=== PATIENT | male | born 1970 ===

== ENCOUNTER 2024-08-29 12:38 | Outpatient (REF) | payer OTHER, SELFPAY ==
--- OUTSIDE RECORDS SUMMARY | 2024-08-29 12:41 | XMS_ITS | Data Portability ---
Author Organization [place] - [facility], Allergy Address [address] [place] [address] Care Team Providers Care Tactical Air Defense Controller Name Role Phone YVETTE ROUSSEAU Primary Care Provider Assessment Encounter Date Assessment Date Assessment LastModified by Organization Details LastModified Time 08/21/2024 08/21/2024 Both ears appear stable today. Large amount of excess cerumen was removed from left ear canal. Small perforation on the left is unchanged in comparison to previous photographs. Once again we discussed in light of his surgical history I would recommend amplification rather than attempt at revision surgery. [email or web address] Not available 08/21/2024 14:06:55 Plan of Treatment Reminders Order Date Submit Date Provider Last Modified By Organization Details Last Modified Time Details Appointments Establish ed 10 2024 01:30P M BERNARD LAGOS MD Not available Not available Not available Lab None recorded. Referral None recorded. Procedures None recorded. Surgeries None recorded. Imaging None recorded. Medication Orders None recorded. Patient TargetsNo targets recorded. Patient InstructionsNo instructions recorded. Reason for Referral None Reported. Results Created Date Observation Date Name Description Value Unit Range Abnormal Flag Note LastModifiedBy Organization Detail LastModifiedTime 08/22/20 24 audio gram No observ ation record ed. BARCODE Not Available 2023 09:47:11 Result Notes None recorded. 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; Note: Date Diagnose d: 2 10:15 AM (H74.11) Not Available [facility] 4 03:07:30 Acute myringit is of left ear 14610089693 04715 Completed 202104/13/2024 Acute myringit is, left ear; Note: Date Diagnose d: 2 10:15 AM (H73.002 ) Not Available [facility] 4 03:07:30 Impacted cerumen in left ear 11713479532 25540 Active 2021 Impacted cerumen, left ear; Note: Date Diagnose d: 2 10:16 AM (H61.22) Not Available [facility] 4 03:07:32 Mixed conducti ve and sensorin eural hearing loss, bilatera l 351461002 Active 2021 Mixed conducti ve and sensorin eural hearing loss, bilatera l; Note: Date Diagnose d: 2 10:28 AM (H90.6) Not Available [facility] 4 03:07:31 Bilatera l disorder of Eustachi an tubes 35008071957 24423 Active 2021 Other specifie d disorder s of Eustachi an tube, bilatera l; Note: Date Diagnose d: 2 10:15 AM (H69.83) Not Available [facility] 4 03:07:30 Marginal perforat ion of tympanic membrane 58403738 Active 2021 Other marginal perforat ions of tympanic membrane , left ear; Note: Date Diagnose d: 2 10:15 AM (H72.2X2 ) Not Available [facility] 4 03:07:31 Bilatera l tinnitus 32415505574 02 Active 2023 BERNARD LAGOS MD [address] [place] [address],[place] [address], [place], [address] , [facility] - [facility] 4 14:07:15 Problem Notes None recorded. Procedures Surgical History Date Name Laterality Status Provider Name and Address Organization Details Recorded Time 4 Cerumen removal with microscope left completed BERNARD LAGOS MD [address] [place] [address],[place] [address], [place], [address], [place] - [facility] 08/21/2024 14:04:10 Air & Speech Audio with Tymps ([id number], 49387 & 50212) completed Josephine Garay [place] - [facility] 08/21/2024 14:30:51 Imaging Results Imaging Date Name Status LastModified by Organiz ation Details LastModified Time 08/22/2024 audiogram completed BARCODE Information no t available 08/22/2024 09:47:11 Procedure Notes None recorded. Medical Equipment None Reported. Allergies No known drug allergies Medications Name Sig Start Date Stop Date Status Note LastModified by Organization Details LastModified Time metformin 500 mg tablet TAKE 2 TABLETS BY MOUTH TWICE A DAY WITH MEALS active Not Available Not Available No t Available sulfameth oxazole 800 mg-trimet hoprim 160 mg tablet TAKE 1 TABLET BY MOUTH TWICE A DAY FOR 5 DAYS 08/21 completed Not Available Not Available Not Available lisinopri l 10 mg tablet TAKE 1 TABLET BY MOUTH EVERY DAY active Not Available Not Available No t Available triamcino lone acetonide 0.1 % lotion APPLY TO SCALP DAILY NEEDED 08/21 completed Not Available Not Available Not Available TobraDex 0.3 %-0.1 % eye drops,nivia pension 08/17 completed Medicati on ID: [id number] P rescribe d By Name: Sarah Morales nd Name: TobraDex Send Method: E-Prescr ibed Sub s Allowed: subs OK Speci al Instruct ion: Instill 3 drops in the affect ear BID for 10 days Med icationG enericNa me: TobraDex Not Available Not Available Not Available ciproflox acin 0.3 %-dexamet hasone 0.1 % ear drops,nivia pension 4 drop into left ear 08/21 completed Medicati on ID: [id number] D uration Value: 7 Prescri bed By Name: Sarah Morales nd Name: ciproflo xacin-de xamethas one Send Method: E-Prescr ibed Sub s Allowed: subs OK Speci al Instruct ion: x 7 days Med icationG enericNa me: ciproflo xacin-de xamethas one Not Available Not Available Not Available rosuvasta tin 5 mg tablet TAKE 1 TABLET BY MOUTH EVERY DAY active Not Available Not Available No t Available Jardiance 10 mg tablet TAKE 1 TABLET BY MOUTH EVERY DAY active Not Available Not Available No t Available Vitals Date Recorded Body height Body weight Provider Name and Address Organization Details Last Updated DateTime 08/21/2024 177.8 cm 93978.77 g Allie Burnett [place] - [facility] 08/21/2024 13:52:06 Social History None recorded. Functional Status None recorded. Mental Status None recorded. Family History Nothing Reported. Medical History Condition Response Diabetes Y Migraines Y Hypertension Y Anxiety Y Depression Y High Cholesterol Y Past Encounters Encounter ID Performer Location Encounter Start Date Encounter Closed Date Diagnosis/Indication Diagnosis SNOMED-CT Code Diagnosis ICD10 Code [id number] BERNARD LAGOS MD [facility] [address] [address] 08/21/2024 13:35:08 08/21/2024 15:02:24 Adhesive middle ear disease 9082563 H74.11 Bilateral disorder of Eustachian tubes 2108226519 114001 H69.83 Marginal p erforation of tympanic membrane 52959599 H72.2X2 Mixed cond uctive and sensorineural hearing loss, bilateral 443475486 H90.6 Impacted c erumen in left ear 3756734242 685617 H61.22 Bilateral tinnitus 16476 91670 102 H93.13 Health Concerns Section Related Observation LastModified by Organization Detai ls LastModified Time None Recorded Concern Status LastModified by Organization Details LastModified Time None Recorded Advance Directives Directive None Recorded Payers Encounter Date Sequence Insurance Name Policy Number Policy Wolfe Covered Member ID Wolfe Member ID Guarantor Name 08/21/2024 1 [facility] - [facility] (MEDICAID REPLACEMENT - HMO) [employer] Fritz A Race [id number] Fritz A Race Notes Date Note Type Note Provider Name and Address Organization Details Recorded Time 08/21/2024 text/html Patient with his tory of left-sided tympanoplasty with ossiculoplasty in 2010. He had a right sided tympanoplasty with ossiculoplasty in 2012. Patient developed new left-sided perforation which was stable as of his last visit in August 2023. He has bilateral mixed hearing loss for which I have recommended binaural amplification. He reports awful tinnitus in the right ear. Noting some cerumen in the left ear, but no painful discharge. He is getting tired of his hearing loss noting difficulty hearing in a number of different listening situations, particularly with his television. BERNARD LAGOS MD [address] [place] [address], [address], [facility] - [facility] 08/21/2024 15:02:09
--- OUTSIDE RECORDS SUMMARY | 2024-08-29 12:41 | XMS_ITS | Continuity of Care Document ---
Author Organization [place] - [facility], [facility] Address [address] [place] [address] Care Team Providers Care Speeder Frame Tender Name Role Phone YVETTE ROUSSEAU Primary Care Provider [phone] Assessment Encounter Date Assessment Date Assessment LastModified by Organization Details LastModified Time 08/21/2024 08/21/2024 Both ears appear stable today. Large amount of excess cerumen was removed from left ear canal. Small perforation on the left is unchanged in comparison to previous photographs. Once again we discussed in light of his surgical history I would recommend amplification rather than attempt at revision surgery. [email or web address] Not available 08/21/2024 14:06:55 Plan of Treatment [...] Details Recorded Time Adhesive middle ear disease 3276234 Active 2021 Adhesive right middle ear disease; Note: Date Diagnose d: 2 10:15 AM (H74.11) Not Available [facility] 4 03:07:30 Acute myringit is of left ear 51705632742 68134 Completed 202104/13/2024 Acute myringit is, left ear; Note: Date Diagnose d: 2 10:15 AM (H73.002 ) Not Available [facility] 4 03:07:30 Impacted cerumen in left ear 73573675488 18004 Active 2021 Impacted cerumen, left ear; Note: Date Diagnose d: 2 10:16 AM (H61.22) Not Available [facility] 4 03:07:32 Mixed conducti ve and sensorin eural hearing loss, bilatera l 616608835 Active 2021 Mixed conducti ve and sensorin eural hearing loss, bilatera l; Note: Date Diagnose d: 2 10:28 AM (H90.6) Not Available [facility] 4 03:07:31 Bilatera l disorder of Eustachi an tubes 54664876970 44466 Active 2021 Other specifie d disorder s of Eustachi an tube, bilatera l; Note: Date Diagnose d: 2 10:15 AM (H69.83) Not Available [facility] 4 03:07:30 Marginal perforat ion of tympanic membrane 12270831 Active 2021 Other marginal perforat ions of tympanic membrane , left ear; Note: Date Diagnose d: 2 10:15 AM (H72.2X2 ) Not Available [facility] 4 03:07:31 Bilatera l tinnitus 19162381418 02 Active 2023 BERNARD LAGOS MD [address] [place] [address],[place] [address], [place], [address] , [facility] - [facility] 4 14:07:15 Problem Notes None recorded. Procedures Surgical History Date Name Laterality Status Provider Name and Address Organization Details Recorded Time 4 Cerumen removal with microscope left completed BERNARD LAGOS MD [address] [place] [address],[place] [address], [place], [address], [place] - [facility] 08/21/2024 14:04:10 Air & Speech Audio with Tymps (636[address], [address] & 37[address]) completed Josephine Garay [place] - [facility] 08/21/2024 14:30:51 Imaging Results None recorded. Procedure Notes None recorded. Medical Equipment None [...] drops,nivia pension 08/17 completed Medicati on ID: [id number] P rescribe d By Name: Sarah Morales [...] left ear 08/21 completed Medicati on ID: [id number] D uration Value: 7 Prescri bed By [...] Details Last Updated DateTime 08/21/2024 177.8 cm 15820.77 g Allie Burnett [place] - [facility] 08/21/2024 13:52:06 Social History None recorded. Functional Status None recorded. Mental Status None recorded. Family History Nothing Reported. Medical History Condition Response Diabetes Y Migraines Y Hypertension Y Anxiety Y Depression Y High Cholesterol Y Past Encounters Encounter ID Performer Location Encounter Start Date Encounter Closed Date Diagnosis/Indication Diagnosis SNOMED-CT Code Diagnosis ICD10 Code [id number] BERNARD LAGOS MD [facility] [address] [address] 08/21/2024 13:35:08 08/21/2024 15:02:24 Adhesive middle ear disease 9538351 H74.11 Bilateral disorder of Eustachian tubes 2124360738 489615 H69.83 Marginal p erforation of tympanic membrane 74266890 H72.2X2 Mixed cond uctive and sensorineural hearing loss, bilateral 642394261 H90.6 Impacted c erumen in left ear 6758906293 550210 H61.22 Bilateral tinnitus 08175 90175 102 H93.13 Health Concerns Section Related Observation LastModified by Organization Detai ls LastModified Time None Recorded Concern Status LastModified by Organization Details LastModified Time None Recorded Payers Encounter Date Sequence Insurance Name Policy Number Policy Wolfe Covered Member ID Wolfe Member ID Guarantor Name 08/21/2024 1 [facility] (MEDICAID REPLACEMENT - HMO) [facility] Fritz A Race [id number] Fritz A Race Notes Date Note Type [...] particularly with his television. BERNARD LAGOS MD [address] [place] [address], [place], [address], [facility] - [facility] 08/21/2024 15:02:09
--- NOTE | 2024-08-29 14:17 | MHC.AU.HA1 ---
Hearing Aid Evaluation Date of Visit: 08/29/24 Historical Information: Description of Hearing: Right Ear: Mild sloping to severe mixed hearing loss; Left Ear: Moderately-severe rising to mild sloping to moderate mixed hearing loss Summary: Provided hearing test and medical clearance from [facility]. Hearing issues started as baby. Hx of ear infections, multiple ear surgeries, PE tubes. Multiple surgeries for ossicular and tympanic membrane reconstruction. Most recently in 2016. 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 At most recent ENT appointment, Fritz and Dr. Rothman decided not to do reconstruction surgery again and he was given medical clearance for HAs. Reportedly tried HAs in his 30s at [facility]. Never fully acclimated, was still active in noisy environments (e.g., bars, concerts), never wore consistently, seemed to turn off whenever loud noise occurred. Now noticing increasing hearing difficulties, particularly while watching television. Wants to try HAs again but use them only for television. Discussed and explain importance of daily, consistent use and acclimatization period. Previous HAs reportedly custom ITCs. Initially wanted IIC/CIC customs due to vanity concerns; however, left ear reportedly has significant wax build up and drainage, which previously clogged custom HAs. After discussing pros/cons including rechargeability and bluetooth, Fritz opted to trial rechargeable RITEs starting with dome. Discussed possibility of adding EM in future, if needed, given hearing loss, but will start with dome to keep ears as open as possible due to wax/drainage. Hearing Aid Prescription: Based on the individual?s shared listening needs, communication environments, dexterity, desire for connectivity, and personal preferences, the following prescription for amplification has been made: Right ear: Make, Model, Color: Phonak Audeo L70-R Color: Black Battery Size: Rechargeable Chart Writer/Slim Tube: 2M Type of Earmold/Dome/CShell/SlimTip: Small vented dome Left ear: Make, Model, Color: Phonak Audeo L70-R Color: Black Battery Size: Rechargeable Chart Writer/Slim Tube: 1M Type of Earmold/Dome/CShell/SlimTip: Small power dome Accessories/Assistive Technology: Data Science And Iot Manager Plan of Care: Patient wishes to purchase hearing aids as prescribed Action Taken/Action Needed: Hearing Instrument Fitting to be scheduled when materials arrive Primary Diagnosis: H90.6 Mixed Hearing Loss, Bilateral Signature: Provider: Wes Moss, [facility]
== END 2024-08-29 12:39 | disposition home or self-care (01) ==
LOC: HO.HAP 12:38
PROVIDERS: PCP Pediatrics; Visit Provider Otolaryngology
DX: Z46.1 Encounter for fitting and adjustment of hearing aid (principal); H90.6 Mixed conductive and sensorineural hearing loss, bilateral
CPT/HCPCS: 92591

== ENCOUNTER 2024-10-02 12:59 | Outpatient (REF) | payer OTHER, SELFPAY ==
--- NOTE | 2024-10-02 13:45 | MHC.AU.HA2 ---
Hearing Instrument Fitting- Adult- Binaural Date of Visit: 10/02/24 Hearing Instruments Dispensed: Right Ear: Tim, Model, Color, Serial Number: Jc Levy L70-R SN: [id number] Color: Black Volleyball Assembler Repair Warranty: 09/27/2027 Volleyball Assembler Loss and Damage Warranty: 09/27/2027 [facility] Service Plan: 10/02/2025 Battery Size: Rechargeable Correctional Food Service Supervisor/Slim Tube: 2M Earmold/Dome/CShell/SlimTip: Small power dome (no retention tail) Type of Wax Guard: CeruStop Left Ear: Make, Model, Color, Serial Number: Jc Levy L70-R SN: [id number] Color: Black Volleyball Assembler Repair Warranty: 09/27/2027 Volleyball Assembler Loss and Damage Warranty: 09/27/2027 [facility] Service Plan: 10/02/2025 Battery Size: Rechargeable Correctional Food Service Supervisor/Slim Tube: 2M Earmold/Dome/CShell/SlimTip: Small power dome (no retention tail) Type of Wax Guard: CeruStop Accessories/Assistive Technology: Phonak Manager Of Tires Sales Ease SN: [id number] Summary of Fitting: Ran feedback analyzer and real ear measures. Decreased to 90% gain level due to perceived loudness. Explained acclimatization period and importance of consistent use. Discussed care, use, and rechargeability including manually turning on/off, VC use, and changing domes and wax guards. Practiced insertion and removal. Did not discuss bluetooth yet, will do at follow up. Recommendations: A hearing instrument follow-up was scheduled. Diagnosis Code(s): Primary Diagnosis: H90.6 Mixed Hearing Loss, Bilateral Signature: Provider: Wes Moss, [facility]
--- OUTSIDE RECORDS SUMMARY | 2024-10-02 14:41 | XMS_ITS | Encounter Summary ---
Author Organization [facility] Address [address] [place] [address] Care Team Providers Care Bobbin Coil Winder Name Role Phone Rosalva Sanders MD Primary Care Provider [phone] Reason for Visit * Reason Onset Date Comments referral 09/21/2024 Encounter Details Date Type Department Care Team (Late st Contact Info) Description 09/21/2024 Telephone Adult [facility] [address] [place] [phone] Zenaida Smith, PharmD [address] [place] [address] referral Social History Tobacco Use Types Packs/Day Years Used Date Smoking Tobacco: Former Cigarettes Q uit: 09/12/2009 Smokeless Tobacco: Never Alcohol Use Standard Drinks/Week Comments Yes 6 (1 standard drink = 0.6 oz pur e alcohol) social Sex and Gender Information Value Date Recorded Sex Assigned at Not on file Gender Identity Not on file Sexual Orientation Not on file Job Start Date Occupation Industry Not on file Not on file Not on file documented as of this encounter Progress Notes * Meenakshi OsborneD - 09/21/2024 2:07 PM EST Joana Sanders, Do you think this patient would benefit from more diabetes education and medication management? If so, I've pended a referral. Thank you for your time, Meenakshi OsborneD., BCACP Clinical Pharmacist [email or web address] P: [phone] F:[phone] documented in this encounter Plan of Treatment Upcoming Encounters Date Type Department Care Team (Late st Contact Info) Description 02/25/2025 10:45 AM EDT Office Visit Adult Medicine [facility] [address] [place] [address] Rosalva Sanders MD [address] [place] [address] documented as of this encounter Visit Diagnoses Not on filedocumented in this encounter Care Teams Bobbin Coil Winder Relationship Specialty Start Date End Date Rosalva Sanders MD [address] [place] [address] PCP - General Internal Medicine 07/10/13 documented as of this encounter
--- OUTSIDE RECORDS SUMMARY | 2024-10-02 14:41 | XMS_ITS | Clinical Summary ---
Author Organization [facility] [address] [facility] Address [address] [place] [address] Phone Care Team Providers Care Department Assistant Name Role Phone Rosalva Sanders MD Primary Care Provider [phone] Allergies No known active allergies Medications Medication Sig Dispensed Refills Start Date End Date Status metFORMIN (GLUCOPHAGE) 500 mg tablet Take 2 tablets (1,000 mg total) by mouth 2 (two) times a day with meals. 04/06/2024 Active rosuvastatin (CRESTOR) 5 mg tablet Take 1 tablet (5 mg total) by mouth 1 (one) time each day. 04/06/2024 Active triamcinolone (KENALOG) 0.1 % lotion Apply to scalp daily prn 02/16/2024 Active ketoconazole (NIZORAL) 2 % shampoo SHAMPOO 3 X PER WEEK 08/19/2023 Active ciclopirox (PENLAC) 8 % solution Apply daily on affected toe nails for 3 month; clean toenails with alcohol every 7th day 02/04/2022 Active ketoconazole (NIZORAL) 2 % cream Apply daily to affected facial skin 02/04/2022 Active blood sugar diagnostic (FreeStyle Lite Strips) test strip 1 Strip by In Vitro route 4 times daily. 05/23/2020 Active FREESTYLE LANCETS MISC Use as directed 05/23/2020 Active freestyle 28 gauge lancets USE DIRECTED 05/23/2020 Active lisinopriL (PRINIVIL,ZESTRIL ) 5 mg tablet Take 1 tablet (5 mg total) by mouth 1 (one) time each day. 90 tablet 07/30/2024 Active empagliflozin (Jardiance) 25 mg tablet Take 1 tablet (25 mg total) by mouth 1 (one) time each day. 90 tablet 1 2024 Active empagliflozin (Jardiance) 10 mg tablet Take 10 mg by mouth daily. 06/11/2024 2024 Discontinued Active Problems Problem Noted Date Diagnosed Date Dyspnea 04/05/2021 Overview (07/10/2024): 03/02. ETT neg. Uncontrolled type 2 diabetes mellitus with hyper glycemia 06/26/2020 Cerebellar atrophy 01/14/2019 Overview (07/10/2024): 11/[address] (for headaches). ?migraines, Etoh. No balance issues. Unable to reach by phone. Consider neurology. Obesity (BMI 30-39.9) 05/03/2018 Heavy alcohol use 11/03/2017 Overview (07/10/2024): 9-12 beers, 3-4 days per week. Seborrhea 10/30/2015 Elevated LFTs 11/01/2014 Overview (07/10/2024): 12/21. Screening labs neg 10/27 Stable LFT. normal screening labs. Ultrasound 02/24--fatty liver Anxiety 10/30/2014 Overview (07/10/2024): Sees counselor. Psych in past. Pt states no meds helped him. Diarrhea 10/30/2014 Overview (07/10/2024): Probable IBS. Eval GI 01/30. Did not respond to GI referral Hypercholesteremia 10/24/2013 Overview (07/10/2024): Borderline LDL, elevated trig 10/26 04/30 ASCVD 5.2 12/31. Declined med Essential hypertension 10/23/2013 GERD (gastroesophageal reflux disease) 4 Overview (07/10/2024): EGD per pt neg 2012 Intol omeprazole Hearing loss 10/23/2013 Overview (07/10/2024): ENT Stephan. Surgery, needs hearing aide. Encounters Date Type Department Care Team Description 09/21/2024 Telephone Adult Medicine - [place] [address] [place] [address] Zenaida Smith, PharmD referral 08/20/2024 10:45 AM EST Office Visit Adult Medicine [facility] [address] [place] [address] Rosalva Sanders MD Uncontrolled type 2 diabetes mellitus with hyperglycemia (CMS/HCC) (Primary Dx); Essential hypertension; Screening for malignant neoplasm of prostate; Tremor; Obesity (BMI 30-39.9); Hypercholesteremia from Last 3 Months Immunizations Name Administration Dates Next Due Hepatitis B (Qfrblse-S-Vribr , Recombivax HB-Adult) 19yo and older 09/22/2011,04/22/2011,03/23/2011 Td, Unspecified 08/18/2000 Surgical History Surgery Date Site/Laterality Comments OTHER SURGICAL HISTORY PROCEDURE: HISTORICAL EAR SURGERY SHOULDER SURGERY PROCEDURE: HISTORICAL SHOULDER SURGERY; COMMENT: right rotator cuff COLONOSCOPY 04/09/2021 PROCEDURE: HISTORICAL COLONOSCOPY; COMMENT: diverticulosis. biopsy pending. Family History Medical History Relation Name Comments Coronary artery disease Grandparent 1 Hypertension Grandparent 2 Relation Name Status Comments Grandparent 1 Grandparent 2 Grandparent 3 Social History Tobacco Use Types Packs/Day Years [...] file Not on file Not on file Obstetrics History Last Filed Vital Signs Vital Sign Reading Time Taken Comments Blood Pressure 113/76 08/20/2024 10:59 AM EST Pulse 84 08/20/2024 10:59 AM EST Temperature 36.6 ??C (97.9 ??F) 08/20/2024 10:[address] Respiratory Rate - - Oxygen Saturation - - Inhaled Oxygen Concentration - - Weight 97.1 kg (214 lb) 08/20/2024 10:59 AM EST Height 177.8 cm (5' 10 ) 08/20/2024 10:59 AM EST Body Mass Index 30.71 08/20/2024 10:59 AM EST Plan of Treatment Upcoming Encounters Date Type Department Care Team (Late st Contact Info) Description 02/25/2025 10:45 AM EDT Office Visit Adult Medicine - [place] [facility] [address] [place] [address] Rosalva Sanders MD [address] [place] [address] Health Maintenance Due Date Last Done Comments Pneumococcal Vaccine: Pediatrics (0 to 5 Years) and At-Risk Patients (6 to 64 Years) (1 of 2 - PCV) 1974 Diabetes: Annual Retina Eye Exam 1978 Zoster Vaccines (1 of 2) 2018 Colorectal Cancer Screening: Stool Based Tests (FOBT/FIT) 08/21/2022 Depression Screening 08/21/2022 HIV Screening 08/21/2022 Social Influencers of Health Screening 08/21/2022 COVID-19 Vaccine ( - 2023-2 5 season) 2024 Influenza Vaccine (#1) 2024 Diabetes: Blood Sugar Contro l Test (HGBA1C) 02/18/2025 08/20/2024, 08/17/2023 Diabetes: Annual Urine Albumin-Creatinine Ratio (uACR) 08/20/2025 08/20/2024, 08/17/2023 Diabetes: Annual Foot Exam 08/20/202508/20, 02/16/2024 Diabetes: Annual GFR (Glomerular Filtration Rate) 08/20/2025 08/20/2024, 08/17/2023 Hypertension/CHF/CAD Annual BMP Blood Test 08/20/2025 08/20/2024, 08/17/2023 Cholesterol Screening (Lipid Panel) 08/20/2029 08/20/2024, 08/17/2023 DTaP,Tdap,and Td Vaccines (4 - Td or Tdap) 02/15/2034 02/16/2024, 10/23/2013, 08/18/2000 Hepatitis B Vaccines Completed 09/22/2011, 04/22/2011, 03/23/2011 Hepatitis C Screening Completed 02/12/2014 HIB Vaccines Aged Out No longer eligi ble based on patient's age to complete this topic HPV Vaccines Aged Out No longer eligi ble based on patient's age to complete this topic Hepatitis A Vaccines Aged Out No long er eligible based on patient's age to complete this topic IPV Vaccines Aged Out No longer eligi ble based on patient's age to complete this topic MMR Vaccines Aged Out No longer eligi ble based on patient's age to complete this topic Meningococcal ACWY Vaccine Aged Out N o longer eligible based on patient's age to complete this topic RSV Immunization Patients Under 20 months Aged Out No longer eligible b ased on patient's age to complete this topic Varicella Vaccines Aged Out No longer eligible based on patient's age to complete this topic Procedures Procedure Name Priority Date/Time Associated Diagnosis Comments CBC WITH AUTO DIFFERENTIAL Routine 08/20/2024 11:56 AM EST Essential hypertension PROSTATE SPECIFIC ANTIGEN SCREEN Routine 08/20/2024 11:56 AM EST Screening for malignant neoplasm of prostate MICROALBUMIN CREATININE URINE RATIO Routine 08/20/2024 11:56 AM EST Uncontrolled type 2 diabetes mellitus with hyperglycemia (CMS/HCC) VITAMIN B12 Routine 08/20/2024 11:56 AM EST Tremor THYROID STIMULATING HORMONE WITH REFLEX TO FREE T4 AND FREE T3 Routine 08/20/2024 11:56 AM EST Tremor LIPID PANEL WITH REFLEX TO DIRECT LDL Routine 08/20/2024 11:56 AM EST Uncontrolled type 2 diabetes mellitus with hyperglycemia (CMS/HCC) HEMOGLOBIN A1C Routine 08/20/2024 11:56 AM EST Uncontrolled type 2 diabetes mellitus with hyperglycemia (CMS/HCC) COMPREHENSIVE METABOLIC PANEL Routine 08/20/2024 11:56 AM EST Uncontrolled type 2 diabetes mellitus with hyperglycemia (CMS/HCC) CBC AND DIFFERENTIAL Routine 08/20/2024 11:56 AM EST Essential hypertension DIABETES FOOT EXAM Routine 02/16/2024 HEPATITIS C SCREENING Routine 02/12/2014 from Last 3 Months or Most Recently Relevant to Health Maintenance Results * Prostate specific antigen screen (08/20/2024 11:56 AM EST) PSA 0.67 0.00 - 4.00 ng/mL LAB CHEMISTRY METHOD 08/20/2024 4:19 PM EST [facility] Blood Venous blood specimen / Unknown Venipuncture / Unknown 08/20/2024 11:56 AM EST 08/20/2024 11:56 AM EST Narrative [facility] - 08/20/2024 4:19 PM EST The Siemens [employer] Chemiluminescent Immunoassay is used. Results obtained with different assay methods or kits cannot be used interchangeably. Results cannot be interpreted as absolute evidence of the presence or absence of malignant disease. C Gigi Sanders MD LAB BLOOD ORDERABLES Performing Organization Address [facility]/ZIP Co de Phone Number [facility] [address] [place] [address], [place] [phone] * Thyroid stimulating hormone with reflex to free t4 and free t3 (08/20/2024 11:56 AM EST) TSH 2.37 0.40 - 4.00 mcIU/mL LAB CHEMISTRY METHOD 08/20/2024 4:20 PM EST [facility] Blood Venous blood specimen / Unknown Venipuncture / Unknown 08/20/2024 11:56 AM EST 08/20/2024 11:56 AM EST C Gigi Sanders MD LAB BLOOD ORDERABLES Performing Organization Address City/[facility]/ZIP Co de Phone Number [facility] [address] [place] [address], [place] [phone] * (ABNORMAL) Lipid panel with reflex to direct LDL (08/20/2024 11:56 AM EST) Cholesterol 173 0 - 200 mg/dL LAB CHEMISTRY METHOD 08/20/2024 5:09 PM [facility] Triglycerides 266(H) 0 - 150 mg/dL LAB CHEMISTRY METHOD 08/20/2024 5:09 PM [facility] HDL 48 >=40 mg/dL LAB CHEMISTRY METHOD 08/20/2024 5:09 PM [facility] LDL Calculated 72 0 - 100 mg/dL LAB CHEMISTRY METHOD 08/20/2024 5:09 PM [facility] VLDL Cholesterol Max 53.2 mg/dL LAB CHEMISTRY METHOD 08/20/2024 5:09 PM [facility] Non HDL Chol. (LDL+VLDL) 125 <145 mg/dL LAB CHEMISTRY METHOD 08/20/2024 5:09 PM [facility] Chol/HDL Ratio 3.6 0.0 - 4.4 LAB CHEMISTRY METHOD 08/20/2024 5:09 PM [facility] Blood Venous blood specimen / Unknown Venipuncture / Unknown 08/20/2024 11:56 AM EST 08/20/2024 11:56 AM EST C Gigi Sanders MD LAB BLOOD ORDERABLES [facility] [address] [place] [address], * (ABNORMAL) CBC auto differential (08/20/2024 11:56 AM EST) Pathologist [facility] WBC 13.8(H) 4.8 - 10.8 K/[facility] LAB HEMETOLOGY METHOD 08/20/2024 2:43 PM [facility] RBC 5.80(H) 4.50 - 5.50 M/mcL LAB HEMETOLOGY METHOD 08/20/2024 2:43 PM [facility] Hemoglobin 16.9 13.5 - 17.5 g/dL LAB HEMETOLOGY METHOD 08/20/2024 2:43 PM [facility] Hematocrit 52.9 42.0 - 54.0 % LAB HEMETOLOGY METHOD 08/20/2024 2:43 PM [facility] MCV 91.0 79.0 - 98.0 FL LAB HEMETOLOGY METHOD 08/20/2024 2:43 PM [facility] MCH 29.1 27.0 - 32.0 pcg LAB HEMETOLOGY METHOD 08/20/2024 2:43 PM [facility] MCHC 31.9(L) 32.0 - 37.0 g/dL LAB HEMETOLOGY METHOD 08/20/2024 2:43 PM [facility] RDW 12.0 11.0 - 15.0 % LAB HEMETOLOGY METHOD 08/20/2024 2:43 PM [facility] Platelets 259 130 - 400 K/mcL LAB HEMETOLOGY METHOD 08/20/2024 2:43 PM [facility] MPV 11.5(H) 7.0 - 11.0 FL LAB HEMETOLOGY METHOD 08/20/2024 2:43 PM [facility] NRBC 0.0 <1.0 % LAB HEMETOLOGY METHOD 08/20/2024 2:43 PM [facility] NRBC Absolute 0.00 <0.10 K/mcL LAB HEMETOLOGY METHOD 08/20/2024 2:43 PM [facility] Neutrophils Relative 63.9 % LAB HEMETOLOGY METHOD 08/20/2024 2:43 PM [facility] Lymphocytes Relative 27.9 % LAB HEMETOLOGY METHOD 08/20/2024 2:43 PM [facility] Monocytes Relative 5.8 % LAB HEMETOLOGY METHOD 08/20/2024 2:43 PM EST [facility] Eosinophils Relative 1.2 % LAB HEMETOLOGY METHOD 08/20/2024 2:43 PM [facility] Basophils Relative 0.6 % LAB HEMETOLOGY METHOD 08/20/2024 2:43 PM [facility] Immature Granulocytes Relative 0.6 % LAB HEMETOLOGY METHOD 08/20/2024 2:43 PM EST [facility] Neutrophils Absolute 8.83(H) 1.50 - 7.00 K/mcL LAB HEMETOLOGY METHOD 08/20/2024 2:43 PM [facility] Lymphocytes Absolute 3.85 1.00 - 5.00 K/mcL LAB HEMETOLOGY METHOD 08/20/2024 2:43 PM [facility] Monocytes Absolute 0.80 0.20 - 1.00 K/mcL LAB HEMETOLOGY METHOD 08/20/2024 2:43 PM [facility] Eosinophils Absolute 0.16 0.00 - 0.50 K/mcL LAB HEMETOLOGY METHOD 08/20/2024 2:43 PM [facility] Basophils Absolute 0.08 0.00 - 0.20 K/mcL LAB HEMETOLOGY METHOD 08/20/2024 2:43 PM [facility] Immature Granulocytes Absolute 0.08(H) 0.00 - 0.03 K/mcL LAB HEMETOLOGY METHOD 08/20/2024 2:43 PM [facility] Blood Venous blood specimen / Unknown Venipuncture / Unknown 08/20/2024 11:56 AM EST 08/20/2024 11:56 AM EST C Gigi Sanders MD LAB BLOOD ORDERABLES [facility] [address] [place] [address], * (ABNORMAL) Microalbumin creatinine urine ratio (08/20/2024 11:56 AM EST) [facility] Creatinine, Urine 130.0 mg/dL LAB CHEMISTRY METHOD 08/20/2024 4:25 PM EST [facility] Microalb, Ur 79.4(H) 0.0 - 29.0 mg/L LAB CHEMISTRY METHOD 08/20/2024 4:25 PM EST [facility] Microalb/Crea t Ratio 61(H) <30 mg/g creat LAB CHEMISTRY METHOD 08/20/2024 4:25 PM EST [facility] Urine Urine specimen obtained by clean catch procedure / Unknown Non-blood Collection / Unknown 08/20/2024 11:56 AM EST 08/20/2024 11:56 AM EST C Gigi Sanders MD LAB URINE ORDERABLES Performing Organization Address City/[facility]/ZIP Co de Phone Number [facility] [address] [place] [address], * (ABNORMAL) Hemoglobin A1c (08/20/2024 11:56 AM EST) [facility] Hemoglobin A1C 8.0(H) <6.5 % LAB CHEMISTRY METHOD 08/20/2024 8:56 PM EST [facility] Mean Bld Glu Estim. 183 mg/dL LAB CHEMISTRY METHOD 08/20/2024 8:56 PM EST [facility] Blood Venous blood specimen / Unknown Venipuncture / Unknown 08/20/2024 11:56 AM EST 08/20/2024 11:56 AM EST C Gigi Sanders MD LAB BLOOD ORDERABLES [facility] [address] [place] [address], [place] [phone] * Vitamin B12 (08/20/2024 11:56 AM EST) Vitamin B-12 341 250 - 900 pcg/mL LAB CHEMISTRY METHOD 08/20/2024 5:09 PM [facility] Blood Venous blood specimen / Unknown Venipuncture / Unknown 08/20/2024 11:56 AM EST 08/20/2024 11:56 AM EST C Gigi Sanders MD LAB BLOOD ORDERABLES [facility] [address] [place] [address], * (ABNORMAL) Comprehensive metabolic panel (08/20/2024 11:56 AM EST) Sodium 140 133 - 145 mmol/L LAB CHEMISTRY METHOD 08/20/2024 5:09 PM [facility] Potassium 4.5 3.5 - 5.5 mmol/L LAB CHEMISTRY METHOD 08/20/2024 5:09 PM [facility] Chloride 106 96 - 110 mmol/L LAB CHEMISTRY METHOD 08/20/2024 5:09 PM [facility] CO2 24 21 - 32 mmol/L LAB CHEMISTRY METHOD 08/20/2024 5:09 PM [facility] Anion Gap 10 3 - 11 LAB CHEMISTRY METHOD 08/20/2024 5:09 PM [facility] Glucose 124(H) 70 - 100 mg/dL LAB CHEMISTRY METHOD 08/20/2024 5:09 PM [facility] BUN 20 5 - 25 mg/dL LAB CHEMISTRY METHOD 08/20/2024 5:09 PM [facility] Creatinine 1.19 0.70 - 1.30 mg/dL LAB CHEMISTRY METHOD 08/20/2024 5:09 PM [facility] eGFR 72 >=60 mL/min/1. 73m2 LAB CHEMISTRY METHOD 08/20/2024 5:09 PM [facility] Comment:Calculation based on the??Chronic Kidney Disease Epidemiology Collaboration (CKD-EPI) equation refit??without adjustment for race. BUN/Creatinine Ratio 16.8 LAB CHEMISTRY METHOD 08/20/2024 5:09 PM [facility] Calcium 10.7(H) 8.5 - 10.5 mg/dL LAB CHEMISTRY METHOD 08/20/2024 5:09 PM [facility] AST (SGOT) 25 10 - 42 unit/L LAB CHEMISTRY METHOD 08/20/2024 5:09 PM [facility] ALT (SGPT) 62(H) 10 - 60 unit/L LAB CHEMISTRY METHOD 08/20/2024 5:09 PM [facility] Alkaline Phosphatase 73 42 - 121 unit/L LAB CHEMISTRY METHOD 08/20/2024 5:09 PM [facility] Total Protein 7.7 6.0 - 8.0 g/dL LAB CHEMISTRY METHOD 08/20/2024 5:09 PM [facility] Albumin 4.8 3.2 - 5.0 g/dL LAB CHEMISTRY METHOD 08/20/2024 5:09 PM [facility] Total Bilirubin 0.7 0.0 - 1.4 mg/dL LAB CHEMISTRY METHOD 08/20/2024 5:09 PM [facility] Blood Venous blood specimen / Unknown Venipuncture / Unknown 08/20/2024 11:56 AM EST 08/20/2024 11:56 AM EST C Gigi Sanders MD LAB BLOOD ORDERABLES [facility] [address] [place] [address], * Diabetes Foot Exam (02/16/2024) Pathologist [facility] Diabetes: Annual Foot Exam abstracted Historical Provider MD LUIS RAMOS E * Hepatitis C Screening (02/12/2014) Pathologist [facility] Hepatitis C Screening abstracted Historical Provider MD LUIS Conway from Last 3 Months or Most Recently Relevant to Health Maintenance Care Teams Department Assistant Relationship Specialty Start Date End Date Rosalva Sanders MD [address] [place] [address] PCP - General Internal Medicine 07/10/13
--- OUTSIDE RECORDS SUMMARY | 2024-10-02 14:41 | XMS_ITS | Data Portability ---
Author Organization [place] - [facility], Allergy Address [address] [place] [address] Care Team Providers Care Security Clerk Name Role Phone YVETTE ROUSSEAU Primary Care [...] amplification rather than attempt at revision surgery. 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; Note: Date Diagnose d: 2 10:15 AM (H74.11) Not Available [facility] 4 03:07:30 Acute myringit is of left ear [id number] 67302 Completed 202104/13/2024 Acute myringit is, left ear; Note: Date Diagnose d: 2 10:15 AM (H73.002 ) Not Available [facility] 4 03:07:30 Impacted cerumen in left ear 58858040363 14999 Active 2021 Impacted cerumen, left ear; Note: Date Diagnose d: 2 10:16 AM (H61.22) Not Available [facility] 4 03:07:32 Mixed conducti ve and sensorin eural hearing loss, bilatera l 418267590 Active 2021 Mixed conducti ve and sensorin eural hearing loss, bilatera l; Note: Date Diagnose d: 2 10:28 AM (H90.6) Not Available [facility] 4 03:07:31 Bilatera l disorder of Eustachi an tubes 09673771488 88476 Active 2021 Other specifie d disorder s of Eustachi an tube, bilatera l; Note: Date Diagnose d: 2 10:15 AM (H69.83) Not Available [facility] 4 03:07:30 Marginal perforat ion of tympanic membrane 49243623 Active 2021 Other marginal perforat ions of tympanic membrane , left ear; Note: Date Diagnose d: 2 10:15 AM (H72.2X2 ) Not Available [facility] 4 03:07:31 Bilatera l tinnitus 69822398645 02 Active 2023 BERNARD LAGOS MD [address] [place] [address],[place] [address], [place], [address] , [facility] - [facility] 4 14:07:15 Problem Notes None recorded. Procedures Surgical History Date Name Laterality Status Provider Name and Address Organization Details Recorded Time 4 Cerumen removal with microscope left completed BERNARD LAGOS MD [address] [place] [address],[place] [address], [place], [address], [place] - [facility] 08/21/2024 14:04:10 Air & Speech Audio with Tymps ([id number], [id number] & 25130) completed Josephine Garay [place] - [facility] 08/21/2024 14:30:51 Imaging Results Imaging Date [...] drops,nivia pension 08/17 completed Medicati on ID: [id number] P rescribe d By Name: Sarah Morales [...] left ear 08/21 completed Medicati on ID: [id number] D uration Value: 7 Prescri bed By [...] Details Last Updated DateTime 08/21/2024 177.8 cm 23790.77 g Allie Burnett [place] - [facility] 08/21/2024 13:52:06 Social History None recorded. Functional Status None recorded. Mental Status None recorded. Family History Nothing Reported. Medical History Condition Response Diabetes Y Migraines Y Hypertension Y Anxiety Y Depression Y High Cholesterol Y Past Encounters Encounter ID Performer Location Encounter Start Date Encounter Closed Date Diagnosis/Indication Diagnosis SNOMED-CT Code Diagnosis ICD10 Code Diagnosis Note [id number] BERNARD LAGOS MD [facility] [address] [address] 08/21/2024 13:35:08 08/21/2024 15:02:24 Adhesive middle ear disease 3192414 H74.11 Bilateral disorder of Eustachian tubes 7046064080 946817 H69.83 Marginal p erforation of tympanic membrane 03628649 H72.2X2 Mixed cond uctive and sensorineural hearing loss, bilateral 915567184 H90.6 Patient's audiogram shows bilateral {{mild mod erate* sev ere}} mixed hearing loss with {{well maintained * moderate ly reduced po or}} speech discrimina tion. There is enough hearing loss to affect day-to-day hearing performanc e. We discussed in detail the pros and cons of amplificat ion (hearing aids). We discussed the connection between untreated hearing loss and increased risk of dementia, falling and accidents. After full discussion , the patient expressed {{interest * no interest}} in learning more about amplificat ion options. Accordingl y {{we will set them up for a hearing aid evaluation I have provided a copy of the audiogram and medical clearance for amplificat ion so the patient can pursue this at their convenienc e I have provided a copy of the audiogram, a list of [facility] hearing aid providers, and medical clearance for amplificat ion so the patient can pursue this at their convenien e*}}. Patient is medically cleared for amplificat ion {{in the right ear in the left ear bilate rally*}}Au diological evaluation results:Ri ght ear:{{Norm al Normal through 2 kHz Mild* Moderate M oderately- severe Sev ere Profou nd}} {{hearing hearing. s loping to a mild slopi ng to a moderate s loping to moderately severe slo ping to severe* sl oping to profound f lat high frequency low frequency mid frequency cookie bite richardson curve}} {{with sen sorineural hearing loss with condu ctive hearing loss with mixed hearing loss with*}} {{excellen t* good fa ir poor no measurable }} word recognitio n.Left ear:{{Norm al Normal through 2 kHz Mild M oderate Mo derately-s evere Khadijah re Profoun d Moderate ly-severe raising to mild at 6kHz#}} {{hearing hearing. s loping to a mild slopi ng to a moderate* sloping to moderately severe slo ping to severe slo ping to profound f lat high frequency low frequency mid frequency cookie bite richardson curve}} {{with sen sorineural hearing loss with condu ctive hearing loss with mixed hearing loss with*}} {{excellen t* good fa ir poor no measurable }} word recognitio n. Tympanomet ry:Right Ear:{{Type A* Type As Type Ad Type C Type C, shallow & rounded Ty pe B Type B with large volume Cou ld not maintain a hermetic seal}}Left Ear:{{Type A Type As Type Ad Type C Type C, shallow & rounded Ty pe B Type B with large volume* Co uld not maintain a hermetic seal}} Impacted c erumen in left ear [id number] 787628 H61.22 Bilateral tinnitus 74072 57809 102 H93.13 Today we discussed the pathophysi ology of tinnitus and the absence of consistent ly successful pharmacolo gic treatments for tinnitus. We discussed masking strategies to decrease awareness of the tinnitus, including using a white noise machine, music, or television . We discussed how exposure to loud noise can worsen tinnitus so I recommende d hearing protection . We also discussed other ways to potentiall y help reduce awareness of tinnitus including avoidance of caffeine, salty meals and NSAIDs.In light of the underlying sensorineu ral hearing loss, the patient may want to further consider amplificat ion. This would not only help with hearing, but can also be instrument al in acting as a masking source to help reduce the awareness of tinnitus. Health Concerns Section Related Observation LastModified by Organization Detai ls LastModified Time None Recorded Concern Status LastModified by Organization Details LastModified Time None Recorded Advance Directives Directive None Recorded Payers Encounter Date Sequence Insurance Name Policy Number Policy Wolfe Covered Member ID Wolfe Member ID Guarantor Name 08/21/2024 1 [facility] - [facility] (MEDICAID REPLACEMENT - HMO) TAYLOR Chamberlain Race [id number] Fritz Chamberlain Race Notes Date Note Type Note Provider [...] particularly with his television. BERNARD LAGOS MD [address] [place] [address], [place], [address], [facility] - [facility] 08/21/2024 15:02:09
== END 2024-10-02 13:00 | disposition home or self-care (01) ==
LOC: HO.HAP 12:59
PROVIDERS: Visit Provider Pediatrics
DX: Z46.1 Encounter for fitting and adjustment of hearing aid (principal); H90.6 Mixed conductive and sensorineural hearing loss, bilateral
CPT/HCPCS: V5011; V5020; V5160; V5261

== ENCOUNTER 2024-10-23 14:22 | Outpatient (REF) | payer OTHER, SELFPAY ==
--- OUTSIDE RECORDS SUMMARY | 2024-10-23 15:19 | XMS_ITS | Data Portability ---
Author Organization [place] - [facility], Allergy Address [address] [place] [address] Care Team Providers Care Clinical Recruiter Name Role Phone YVETTE ROUSSEAU Primary Care Provider [phone] Assessment Encounter Date Assessment Date Assessment LastModified by Organization Details LastModified Time 08/21/2024 08/21/2024 Both ears appear stable today. Large amount of excess cerumen was removed from left ear canal. Small perforation on the left is unchanged in comparison to previous photographs. Once again we discussed in light of his surgical history I would recommend amplification rather than attempt at revision surgery. 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; Note: Date Diagnose d: 2 10:15 AM (H74.11) Not Available [facility] 4 03:07:30 Acute myringit is of left ear 60853984665 87107 Completed 202104/13/2024 Acute myringit is, left ear; Note: Date Diagnose d: 2 10:15 AM (H73.002 ) Not Available [facility] 4 03:07:30 Impacted cerumen in left ear 93833670923 54692 Active 2021 Impacted cerumen, left ear; Note: Date Diagnose d: 2 10:16 AM (H61.22) Not Available [facility] 4 03:07:32 Mixed conducti ve and sensorin eural hearing loss, bilatera l 284367651 Active 2021 Mixed conducti ve and sensorin eural hearing loss, bilatera l; Note: Date Diagnose d: 2 10:28 AM (H90.6) Not Available [facility] 4 03:07:31 Bilatera l disorder of Eustachi an tubes 11868899296 74838 Active 2021 Other specifie d disorder s of Eustachi an tube, bilatera l; Note: Date Diagnose d: 2 10:15 AM (H69.83) Not Available [facility] 4 03:07:30 Marginal perforat ion of tympanic membrane 69316879 Active 2021 Other marginal perforat ions of tympanic membrane , left ear; Note: Date Diagnose d: 2 10:15 AM (H72.2X2 ) Not Available [facility] 4 03:07:31 Bilatera l tinnitus 41306920040 02 Active 2023 BERNARD LAGOS MD [address] [place] [address],[place] [address], [place], [address] , [facility] - [facility] 4 14:07:15 Problem Notes None recorded. Procedures Surgical History Date Name Laterality Status Provider Name and Address Organization Details Recorded Time 4 Cerumen removal with microscope left completed BERNARD LAGOS MD [address] [place] [address],[place] [address], [place], [address], [place] - [facility] 08/21/2024 14:04:10 Air & Speech Audio with Tymps (92184, 04692 & 52963) completed Josephine Garay [place] - [facility] 08/21/2024 14:30:51 Imaging Results Imaging Date [...] drops,nivia pension 08/17 completed Medicati on ID: [id number] P rescribe d By Name: Sarah Morales [...] left ear 08/21 completed Medicati on ID: [id number] D uration Value: 7 Prescri bed By [...] Details Last Updated DateTime 08/21/2024 177.8 cm 21634.77 g Allie Burnett [place] - [facility] 08/21/2024 13:52:06 Social History None recorded. Functional Status None recorded. Mental Status None recorded. Family History Nothing Reported. Medical History Condition Response Diabetes Y Anxiety Y High Cholesterol Y Migraines Y Hypertension Y Depression Y Past Encounters Encounter ID Performer Location Encounter Start Date Encounter Closed Date Diagnosis/Indication Diagnosis SNOMED-CT Code Diagnosis ICD10 Code Diagnosis Note [id number] BERNARD LAGOS MD [facility] [address] [address] 08/21/2024 13:35:08 08/21/2024 15:02:24 Adhesive middle ear disease 8203847 H74.11 Bilateral disorder of Eustachian tubes [id number] 714303 H69.83 Marginal p erforation of tympanic membrane 38813507 H72.2X2 Mixed cond uctive and sensorineural hearing loss, bilateral 863399703 H90.6 Patient's audiogram shows bilateral {{mild mod [...] copy of the audiogram, a list of [facility] hearing aid providers, and medical clearance for [...] seal}} Impacted c erumen in left ear [id number] 461150 H61.22 Bilateral tinnitus 45589 21109 102 H93.13 Today we discussed the pathophysi [...] Wolfe Member ID Guarantor Name 08/21/2024 1 [facility] - [facility] (MEDICAID REPLACEMENT - HMO) TAYLOR Chamberlain Race [id number] Fritz Chamberlain Race Notes Date Note Type [...] particularly with his television. BERNARD LAGOS MD [address] [place] [address], [place], [address], [facility] - [facility] 08/21/2024 15:02:09
--- OUTSIDE RECORDS SUMMARY | 2024-10-23 15:19 | XMS_ITS | Clinical Summary ---
Author Organization [facility] [place] [address] [facility] Address [address] [place] [address] Phone Care Team Providers Care [employer] Warrant Officer Name Role Phone Rosalva Sanders MD Primary Care Provider [phone] Allergies No known active allergies Medications triamcinolone (KENALOG) 0.1 % lotion Apply to scalp daily prn 02/16/20 24 Active ketoconazole (NIZORAL) 2 % shampoo SHAMPOO 3 X PER WEEK 08/19/20 23 Active ciclopirox (PENLAC) 8 % solution Apply daily on affected toe nails for 3 month; clean toenails with alcohol every 7th day 02/05/20 22 Active ketoconazole (NIZORAL) 2 % cream Apply daily to affected facial skin 02/05/20 22 Active blood sugar diagnostic (FreeStyle Lite Strips) test strip 1 Strip by In Vitro route 4 times daily. 05/23/20 20 Active FREESTYLE LANCETS MISC Use as directed 05/23/20 20 Active freestyle 28 gauge lancets USE DIRECTED 05/23/20 20 Active lisinopriL (PRINIVIL,ZESTRIL ) 5 mg tablet Take 1 tablet (5 mg total) by mouth 1 (one) time each day. 90 tablet 07/30/20 24 Active empagliflozin (Jardiance) 25 mg tablet Take 1 tablet (25 mg total) by mouth 1 (one) time each day. 90 tablet 1 09/19/19 25 Active metFORMIN (GLUCOPHAGE) 500 mg tabletIndications :Type 2 diabetes mellitus with hyperglycemia (CMS/HCC) TAKE 2 TABLETS BY MOUTH TWICE A DAY WITH MEALS 360 tablet 1 10/03/19 25 Active rosuvastatin (CRESTOR) 5 mg tablet TAKE 1 TABLET BY MOUTH EVERY DAY 90 tablet 1 10/03/19 25 Active metFORMIN (GLUCOPHAGE) 500 mg tablet Take 2 tablets (1,000 mg total) by mouth 2 (two) times a day with meals. 04/06/20 24 025 Discontinued rosuvastatin (CRESTOR) 5 mg tablet Take 1 tablet (5 mg total) by mouth 1 (one) time each day. 04/06/20 24 025 Discontinued Active Problems Problem Noted Date Diagnosed [...] Care Team Description 09/21/2024 Telephone Adult Medicine [facility] [address] [place] [address] Zenaida Smith, PharmD referral 08/20/2024 10:45 AM EST Office Visit Adult Medicine [facility] [address] [place] [address] Rosalva Sanders MD Uncontrolled type 2 diabetes mellitus with hyperglycemia (CMS/HCC) (Primary Dx); Essential hypertension; Screening for malignant neoplasm of prostate; Tremor; Obesity (BMI 30-39.9); Hypercholesteremia from Last 3 Months Immunizations Name Administration Dates Next Due Hepatitis B (Iapdipa-A-Uvlxr , Recombivax HB-Adult) 19yo and older 09/22/2011,04/22/2011,03/23/2011 [...] Recorded Sex Assigned at Not on file Legal Sex Male 3:52 AM EST Gender Identity Not on file Sexual Orientation Not on file Obstetrics History Last Filed [...] AM EDT Office Visit Adult Medicine - [place] [address] [place] [address] Rosalva Sanders MD [address] [place] [address] Health Maintenance Due Date Last Done Comments Diabetes: Annual Retina Eye Exam 1978 Pneumococcal Vaccine: 50+ Years (1 of 2 - PCV) 1987 Pneumococcal Vaccine: Pediatrics (0 to 5 Years) and At-Risk Patients (6 to 64 Years) (1 of 2 - PCV) 1987 Zoster Vaccines (1 of 2) 2018 Colorectal [...] patient's age to complete this topic Meningococcal B Vacine Aged Out No lo nger eligible based on patient's age to complete [...] LAB CHEMISTRY METHOD 08/20/2024 4:19 PM EST [facility] Blood Venous blood specimen / Unknown Venipuncture / Unknown 08/20/2024 11:56 AM EST 08/20/2024 11:56 AM EST Narrative [facility] - 08/20/2024 4:19 PM EST The Siemens Advia Centaur Chemiluminescent Immunoassay is used. Results obtained with different assay methods or kits cannot be used interchangeably. Results cannot be interpreted as absolute evidence of the presence or absence of malignant disease. us C Gigi Sanders MD LAB BLOOD ORDERABLES Final Res ult [facility] [address] [place] [address], * Thyroid stimulating hormone with reflex to free t4 and free t3 (08/20/2024 11:56 AM EST) TSH 2.37 0.40 - 4.00 mcIU/mL LAB CHEMISTRY METHOD 08/20/2024 4:20 PM EST [facility] Blood Venous blood specimen / Unknown Venipuncture / Unknown 08/20/2024 11:56 AM EST 08/20/2024 11:56 AM EST us C Gigi Sanders MD LAB BLOOD ORDERABLES Final Res ult [facility] [address] [place] [address], [place] [phone] * (ABNORMAL) Lipid panel with reflex to direct LDL (08/20/2024 11:56 AM EST) Pathologist [facility] Cholesterol 173 0 - 200 mg/dL LAB CHEMISTRY METHOD 08/20/2024 5:09 PM [facility] Triglycerides 266(H) 0 - 150 mg/dL LAB CHEMISTRY METHOD 08/20/2024 5:09 PM [facility] HDL 48 >=40 mg/dL LAB CHEMISTRY METHOD 08/20/2024 5:09 PM [facility] LDL Calculated 72 0 - 100 mg/dL LAB CHEMISTRY METHOD 08/20/2024 5:09 PM [facility] VLDL Cholesterol Max 53.2 mg/dL LAB CHEMISTRY METHOD 08/20/2024 5:09 PM [facility] Non HDL Chol. (LDL+VLDL) 125 <145 mg/dL LAB CHEMISTRY METHOD 08/20/2024 5:09 PM [facility] Chol/HDL Ratio 3.6 0.0 - 4.4 LAB CHEMISTRY METHOD 08/20/2024 5:09 PM [facility] Blood Venous blood specimen / Unknown Venipuncture / Unknown 08/20/2024 11:56 AM EST 08/20/2024 11:56 AM EST us C Gigi Sanders MD LAB BLOOD ORDERABLES Final Res ult Performing Organization Address City/[facility]/ZIP Co de Phone Number [facility] [address] [place] [address], [place] [phone] * (ABNORMAL) CBC auto differential (08/20/2024 11:56 AM EST) [facility] WBC 13.8(H) 4.8 - 10.8 K/mcL LAB HEMETOLOGY METHOD 08/20/2024 2:43 PM [facility] RBC 5.80(H) 4.50 - 5.50 M/mcL LAB HEMETOLOGY METHOD 08/20/2024 2:43 PM [facility] Hemoglobin 16.9 13.5 - 17.5 g/dL LAB HEMETOLOGY METHOD 08/20/2024 2:43 PM [facility] Hematocrit 52.9 42.0 - 54.0 % LAB HEMETOLOGY METHOD 08/20/2024 2:43 PM [facility] MCV 91.0 79.0 - 98.0 FL LAB HEMETOLOGY METHOD 08/20/2024 2:43 PM [facility] MCH 29.1 27.0 - 32.0 pcg LAB HEMETOLOGY METHOD 08/20/2024 2:43 PM [facility] MCHC 31.9(L) 32.0 - 37.0 g/dL LAB HEMETOLOGY METHOD 08/20/2024 2:43 PM [facility] RDW 12.0 11.0 - 15.0 % LAB HEMETOLOGY METHOD 08/20/2024 2:43 PM [facility] Platelets 259 130 - 400 K/mcL LAB HEMETOLOGY METHOD 08/20/2024 2:43 PM [facility] MPV 11.5(H) 7.0 - 11.0 FL LAB HEMETOLOGY METHOD 08/20/2024 2:43 PM [facility] NRBC 0.0 <1.0 % LAB HEMETOLOGY METHOD 08/20/2024 2:43 PM [facility] NRBC Absolute 0.00 <0.10 K/mcL LAB HEMETOLOGY METHOD 08/20/2024 2:43 PM [facility] Neutrophils Relative 63.9 % LAB HEMETOLOGY METHOD 08/20/2024 2:43 PM [facility] Lymphocytes Relative 27.9 % LAB HEMETOLOGY METHOD 08/20/2024 2:43 PM [facility] Monocytes Relative 5.8 % LAB HEMETOLOGY METHOD 08/20/2024 2:43 PM [facility] Eosinophils Relative 1.2 % LAB HEMETOLOGY METHOD 08/20/2024 2:43 PM [facility] Basophils Relative 0.6 % LAB HEMETOLOGY METHOD 08/20/2024 2:43 PM [facility] Immature Granulocytes Relative 0.6 % LAB HEMETOLOGY METHOD 08/20/2024 2:43 PM [facility] Neutrophils Absolute 8.83(H) 1.50 - 7.00 K/mcL LAB HEMETOLOGY METHOD 08/20/2024 2:43 PM [facility] Lymphocytes Absolute 3.85 1.00 - 5.00 K/mcL LAB HEMETOLOGY METHOD 08/20/2024 2:43 PM [facility] Monocytes Absolute 0.80 0.20 - 1.00 K/mcL LAB HEMETOLOGY METHOD 08/20/2024 2:43 PM [facility] Eosinophils Absolute 0.16 0.00 - 0.50 K/mcL LAB HEMETOLOGY METHOD 08/20/2024 2:43 PM [facility] Basophils Absolute 0.08 0.00 - 0.20 K/mcL LAB HEMETOLOGY METHOD 08/20/2024 2:43 PM [facility] Immature Granulocytes Absolute 0.08(H) 0.00 - 0.03 K/mcL LAB HEMETOLOGY METHOD 08/20/2024 2:43 PM [facility] Blood Venous blood specimen / Unknown Venipuncture / Unknown 08/20/2024 11:56 AM EST 08/20/2024 11:56 AM EST us Rosalva Sanders MD LAB BLOOD ORDERABLES Final Res ult Performing Organization Address [place]/[facility]/ZIP Co de Phone Number [facility] [address] [place] [address], [place] [phone] * (ABNORMAL) Microalbumin creatinine urine ratio (08/20/2024 11:56 AM EST) Creatinine, Urine 130.0 mg/dL LAB CHEMISTRY METHOD 08/20/2024 4:25 PM EST [facility] Microalb, Ur 79.4(H) 0.0 - 29.0 mg/L LAB CHEMISTRY METHOD 08/20/2024 4:25 PM EST [facility] Microalb/Crea t Ratio 61(H) <30 mg/g creat LAB CHEMISTRY METHOD 08/20/2024 4:25 PM EST [facility] Urine Urine specimen obtained by clean catch procedure / Unknown Non-blood Collection / Unknown 08/20/2024 11:56 AM EST 08/20/2024 11:56 AM EST us Rosalva Sanders MD LAB URINE ORDERABLES Final Res ult Performing Organization Address [place]/[facility]/ZIP Co de Phone Number [facility] [address] [place] [address], [place] [phone] * (ABNORMAL) Hemoglobin A1c (08/20/2024 11:56 AM EST) Hemoglobin A1C 8.0(H) <6.5 % LAB CHEMISTRY METHOD 08/20/2024 8:56 PM EST [facility] Mean Bld Glu Estim. 183 mg/dL LAB CHEMISTRY METHOD 08/20/2024 8:56 PM EST [facility] Blood Venous blood specimen / Unknown Venipuncture / Unknown 08/20/2024 11:56 AM EST 08/20/2024 11:56 AM EST us Rosalva Sanders MD LAB BLOOD ORDERABLES Final Res ult Performing Organization Address City/[facility]/ZIP Co de Phone Number [facility] [address] [place] [address], [place] [phone] * Vitamin B12 (08/20/2024 11:56 AM EST) [facility] Vitamin B-12 341 250 - 900 pcg/mL LAB CHEMISTRY METHOD 08/20/2024 5:09 PM [facility] Blood Venous blood specimen / Unknown Venipuncture / Unknown 08/20/2024 11:56 AM EST 08/20/2024 11:56 AM EST us Rosalva Sanders MD LAB BLOOD ORDERABLES Final Res ult Performing Organization Address City/[facility]/ZIP Co de Phone Number [facility] [address] [place] [address], [place] [phone] * (ABNORMAL) Comprehensive metabolic panel (08/20/2024 11:56 AM EST) [facility] Sodium 140 133 - 145 mmol/L LAB CHEMISTRY METHOD 08/20/2024 5:09 PM [facility] Potassium 4.5 3.5 - 5.5 mmol/L LAB CHEMISTRY METHOD 08/20/2024 5:09 PM [facility] Chloride 106 96 - 110 mmol/L LAB CHEMISTRY METHOD 08/20/2024 5:09 PM [facility] CO2 24 21 - 32 mmol/L LAB CHEMISTRY METHOD 08/20/2024 5:09 PM [facility] Anion Gap 10 3 - 11 LAB CHEMISTRY METHOD 08/20/2024 5:09 PM [facility] Glucose 124(H) 70 - 100 mg/dL LAB CHEMISTRY METHOD 08/20/2024 5:09 PM [facility] BUN 20 5 - 25 mg/dL LAB CHEMISTRY METHOD 08/20/2024 5:09 PM [facility] Creatinine 1.19 0.70 - 1.30 mg/dL LAB CHEMISTRY METHOD 08/20/2024 5:09 PM [facility] eGFR 72 >=60 mL/min/1. 73m2 LAB CHEMISTRY METHOD 08/20/2024 5:09 PM [facility] Comment:Calculation based on the??Chronic Kidney Disease Epidemiology Collaboration (CKD-EPI) equation refit??without adjustment for race. BUN/Creatinine Ratio 16.8 LAB CHEMISTRY METHOD 08/20/2024 5:09 PM [facility] Calcium 10.7(H) 8.5 - 10.5 mg/dL LAB CHEMISTRY METHOD 08/20/2024 5:09 PM [facility] AST (SGOT) 25 10 - 42 unit/L LAB CHEMISTRY METHOD 08/20/2024 5:09 PM [facility] ALT (SGPT) 62(H) 10 - 60 unit/L LAB CHEMISTRY METHOD 08/20/2024 5:09 PM [facility] Alkaline Phosphatase 73 42 - 121 unit/L LAB CHEMISTRY METHOD 08/20/2024 5:09 PM [facility] Total Protein 7.7 6.0 - 8.0 g/dL LAB CHEMISTRY METHOD 08/20/2024 5:09 PM [facility] Albumin 4.8 3.2 - 5.0 g/dL LAB CHEMISTRY METHOD 08/20/2024 5:09 PM [facility] Total Bilirubin 0.7 0.0 - 1.4 mg/dL LAB CHEMISTRY METHOD 08/20/2024 5:09 PM [facility] Blood Venous blood specimen / Unknown Venipuncture / Unknown 08/20/2024 11:56 AM EST 08/20/2024 11:56 AM EST Rosalva Sanders MD LAB BLOOD ORDERABLES Final Res ult [facility] [address] [place] [address], [place] [phone] * Diabetes Foot Exam (02/16/2024) Diabetes: Annual Foot Exam abstracted Historical Provider HEALTH MAINTENANCE Final Result * Hepatitis C Screening (02/12/2014) Hepatitis C Screening abstracted Historical Provider HEALTH MAINTENANCE Final Result from Last 3 Months or Most Recently Relevant to Health Maintenance Insurance [facility] Care Teams Special Forces Warrant Officer Relationship Specialty Start Date End Date Rosalva Sanders MD [address] [place] [id number] PCP - General Internal Medicine 07/10/13
--- OUTSIDE RECORDS SUMMARY | 2024-10-23 15:19 | XMS_ITS | Encounter Summary ---
Author Organization [facility] Address [address] [place] [address] Care Team Providers Care Core Placer Name Role Phone Rosalva Sanders MD Primary Care Provider [phone] Reason for Visit * Reason Onset Date Comments referral 09/21/2024 Encounter Details Date Type Department Care Team (Late st Contact Info) Description 09/21/2024 Telephone Adult [facility] [address] [place] [id number] Zenaida Smith, PharmD [address] [place] [address] referral Social History Tobacco Use Types Packs/Day [...] on file Sexual Orientation Not on file documented as of this encounter Progress Notes * Meenakshi OsborneD - 09/21/2024 2:07 PM EST Joana Sanders, Do you think this patient would benefit from more diabetes education and medication management? If so, I've pended a referral. Thank you for your time, Meenakshi OsborneD., BCACP Clinical Pharmacist [email or web address] [email or web address] P: [phone] F:[phone] documented in this encounter Plan of Treatment Upcoming Encounters Date Type Department Care Team (Late st Contact Info) Description 02/25/2025 10:45 AM EDT Office Visit Adult Medicine [facility] [address] [place] [address] Rosalva Sanders MD [address] [place] [address] documented as of this encounter Visit Diagnoses Not on filedocumented in this encounter Care Teams Core Placer Relationship Specialty Start Date End Date Rosalva Sanders MD [address] [place] [address] PCP - General Internal Medicine 07/10/13 documented as of this encounter
== END 2024-10-23 14:23 | disposition home or self-care (01) ==
LOC: HO.HAP 14:22
PROVIDERS: PCP Pediatrics; Visit Provider Otolaryngology
DX: Z13.89 Encounter for screening for other disorder (principal)

== ENCOUNTER 2024-11-09 13:29 | Outpatient (REF) | payer OTHER, SELFPAY ==
--- OUTSIDE RECORDS SUMMARY | 2024-11-09 15:36 | XMS_ITS | Data Portability ---
Author Organization [place] - [facility] Address [address] [place] [address] Care Team Providers Care Clinical Services Consultant Name Role Phone YVETTE ROUSSEAU Primary Care Provider [phone] Assessment Encounter Date Assessment Date Assessment LastModified by Organization Details LastModified Time 08/21/2024 08/21/2024 Both ears appear stable today. Large amount of excess cerumen was removed from left ear canal. Small perforation on the left is unchanged in comparison to previous photographs. Once again we discussed in light of his surgical history I would recommend amplification rather than attempt at revision surgery. Not available 08/21/2024 14:06:55 Plan of Treatment [...] Details Recorded Time Adhesive middle ear disease 5239565 Active 2021 Adhesive right middle ear disease; Note: Date Diagnose d: 2 10:15 AM (H74.11) Not Available [facility] 4 03:07:30 Acute myringit is of left ear [id number] 79887 Completed 202104/13/2024 Acute myringit is, left ear; Note: Date Diagnose d: 2 10:15 AM (H73.002 ) Not Available [facility] 4 03:07:30 Impacted cerumen in left ear 35759840662 80301 Active 2021 Impacted cerumen, left ear; Note: Date Diagnose d: 2 10:16 AM (H61.22) Not Available [facility] 4 03:07:32 Mixed conducti ve and sensorin eural hearing loss, bilatera l 851059196 Active 2021 Mixed conducti ve and sensorin eural hearing loss, bilatera l; Note: Date Diagnose d: 2 10:28 AM (H90.6) Not Available [facility] 4 03:07:31 Bilatera l disorder of Eustachi an tubes 29790123415 76860 Active 2021 Other specifie d disorder s of Eustachi an tube, bilatera l; Note: Date Diagnose d: 2 10:15 AM (H69.83) Not Available [facility] 4 03:07:30 Marginal perforat ion of tympanic membrane 81487697 Active 2021 Other marginal perforat ions of tympanic membrane , left ear; Note: Date Diagnose d: 2 10:15 AM (H72.2X2 ) Not Available [facility] 4 03:07:31 Bilatera l tinnitus 14915108875 02 Active 2023 BERNARD LAGOS MD [address] [place] [address],[place] [address], [place], [address] , [facility] - [facility] 4 14:07:15 Problem Notes None recorded. Procedures Surgical History Date Name Laterality Status Provider Name and Address Organization Details Recorded Time 4 Cerumen removal with microscope left completed BERNARD LAGOS MD [address] [place] [address],[place] [address], [place], [address], [place] - [facility] 08/21/2024 14:04:10 Air & Speech Audio with Tymps (85131, 55292 & 56752) completed Josephine Garay [place] - [facility] 08/21/2024 14:30:51 Imaging Results Imaging Date Name [...] drops,nivia pension 08/17 completed Medicati on ID: [id number] P rescribe d By Name: Sarah Morales [...] left ear 08/21 completed Medicati on ID: [id number] D uration Value: 7 Prescri bed By [...] Details Last Updated DateTime 08/21/2024 177.8 cm 63366.77 g Allie Burnett [place] [facility] 08/21/2024 13:52:06 Social History None recorded. Functional Status None recorded. Mental Status None recorded. Family History Nothing Reported. Medical History Condition Response Anxiety Y Migraines Y Depression Y Diabetes Y High Cholesterol Y Hypertension Y Past Encounters Encounter ID Performer Location Encounter Start Date Encounter Closed Date Diagnosis/Indication Diagnosis SNOMED-CT Code Diagnosis ICD10 Code Diagnosis Note [id number] BERNARD LAGOS MD [facility] [address] [address] 08/21/2024 13:35:08 08/21/2024 15:02:24 Adhesive middle ear disease 9766585 H74.11 Bilateral disorder of Eustachian tubes 7086990844 861698 H69.83 Marginal p erforation of tympanic membrane 75350498 H72.2X2 Mixed cond uctive and sensorineural hearing loss, bilateral 864301732 H90.6 Patient's audiogram shows bilateral {{mild mod [...] copy of the audiogram, a list of [facility] hearing aid providers, and medical clearance [...] seal}} Impacted c erumen in left ear 8663017443 245987 H61.22 Bilateral tinnitus 63207 49348 102 H93.13 Today we discussed the pathophysi [...] Wolfe Member ID Guarantor Name 08/21/2024 1 [facility] - [facility] (MEDICAID REPLACEMENT - HMO) TAYLOR Chamberlain Race [id number] Fritz Chamberlain Race Notes Date Note Type [...] particularly with his television. BERNARD LAGOS MD [address] [place] [address], [place], [address], [facility] - [facility] 08/21/2024 15:02:09
--- OUTSIDE RECORDS SUMMARY | 2024-11-09 15:36 | XMS_ITS | Encounter Summary ---
Author Organization [facility] Address [address] [place] [address] Care Team Providers Care Specialized Language Instructor Name Role Phone Rosalva Sanders MD Primary Care Provider [phone] Reason for Visit * Reason Onset Date Comments referral 09/21/2024 Encounter Details Date Type Department Care Team (Late st Contact Info) Description 09/21/2024 Telephone Adult [facility] [address] [place] [phone] Zenaida Smith, PharmD [address] [place] [address] referral Social History Tobacco Use Types Packs/Day [...] time, Meenakshi OsborneD., BCACP Clinical Pharmacist [email or web address] P: [phone] F:[phone] documented in this encounter Plan of Treatment Upcoming Encounters Date Type Department Care Team (Late st Contact Info) Description 02/25/2025 10:45 AM EDT Office Visit Adult Medicine [facility] [address] [place] [address] Rosalva Sanders MD [address] [place] [address] documented as of this encounter Visit Diagnoses Not on filedocumented in this encounter Care Teams Specialized Language Instructor Relationship Specialty Start Date End Date Rosalva Sanders MD [address] [place] [address] PCP - General Internal Medicine 07/10/13 documented as of this encounter
--- OUTSIDE RECORDS SUMMARY | 2024-11-09 15:36 | XMS_ITS | Clinical Summary ---
Author Organization [facility] [address] [facility] Address [address] [place] [address] Phone Care Team Providers Care Limousine Driver Name Role Phone Rosalva Sanders MD Primary Care Provider [phone] Allergies No known active allergies Medications triamcinolone (KENALOG) 0.1 % lotion Apply to scalp daily prn 4 Active ketoconazole (NIZORAL) 2 % shampoo SHAMPOO 3 X PER WEEK 3 Active ciclopirox (PENLAC) 8 % solution Apply daily on affected toe nails for 3 month; clean toenails with alcohol every 7th day 2 Active ketoconazole (NIZORAL) 2 % cream Apply daily to affected facial skin 2 Active blood sugar diagnostic (FreeStyle Lite Strips) test strip 1 Strip by In Vitro route 4 times daily. 0 Active FREESTYLE LANCETS MISC Use as directed 0 Active freestyle 28 gauge lancets USE DIRECTED 0 Active lisinopriL (PRINIVIL,ZESTRIL) 5 mg tablet Take 1 tablet (5 mg total) by mouth 1 (one) time each day. 90 tablet 4 Active empagliflozin (Jardiance) 25 mg tablet Take 1 tablet (25 mg total) by mouth 1 (one) time each day. 90 tablet 1 5 Active metFORMIN (GLUCOPHAGE) 500 mg tabletIndications: Type 2 diabetes mellitus with hyperglycemia (CMS/HCC) TAKE 2 TABLETS BY MOUTH TWICE A DAY WITH MEALS 360 tablet 1 5 Active rosuvastatin (CRESTOR) 5 mg tablet TAKE 1 TABLET BY MOUTH EVERY DAY 90 tablet 1 5 Active Active Problems Problem Noted Date Diagnosed Date [...] Team Description 09/21/2024 Telephone Adult Medicine - [place] [address] [place] [address] Zenaida Smith, PharmD referral 08/20/2024 10:45 AM EST Office Visit [facility] [address] [place] [id number] Rosalva Sanders MD Uncontrolled type 2 diabetes mellitus with hyperglycemia (CMS/HCC) (Primary Dx); Essential hypertension; Screening for malignant neoplasm of prostate; Tremor; Obesity (BMI 30-39.9); Hypercholesteremia from Last 3 Months Immunizations Name Administration Dates Next Due Hepatitis B (Sipqczg-[id number] , Recombivax HB-Adult) 19yo and older 09/22/2011,04/22/2011,03/23/2011 [...] AM EDT Office Visit Adult Medicine - [place] [address] [place] [address] Rosalva Sanders MD [address] [place] [address] Health Maintenance Due Date Last Done Comments [...] Influencers of Health Screening 08/21/2022 COVID-19 Vaccine (2023-2 5 season) 2024 Influenza Vaccine (#1) 2024 [...] LAB CHEMISTRY METHOD 08/20/2024 4:[address] [facility] Blood Venous blood specimen / Unknown Venipuncture / Unknown 08/20/2024 11:56 AM EST 08/20/2024 11:[address] [facility] - 08/20/2024 4:19 PM EST The [employer] Chemiluminescent Immunoassay is used. Results obtained with different assay methods or kits cannot be used interchangeably. Results cannot be interpreted as absolute evidence of the presence or absence of malignant disease. us Rosalva Sanders MD LAB BLOOD ORDERABLES Final Res ult Performing Organization Address City/[facility]/ZIP Co de Phone Number [facility] [address] [place] [address], [place] [phone] * Thyroid stimulating hormone with reflex to free t4 and free t3 (08/20/2024 11:56 AM EST) TSH 2.37 0.40 - 4.00 mcIU/mL LAB CHEMISTRY METHOD 08/20/2024 4:[address] [facility] Blood Venous blood specimen / Unknown Venipuncture / Unknown 08/20/2024 11:56 AM EST 08/20/2024 11:56 AM EST us Rosalva Sanders MD LAB BLOOD ORDERABLES Final Res ult [facility] [address] [place] [address], [place] [phone] * (ABNORMAL) Lipid panel with reflex to direct LDL (08/20/2024 11:56 AM EST) Cholesterol 173 0 - 200 mg/dL LAB CHEMISTRY METHOD 08/20/2024 5:09 PM [facility] Triglycerides 266(H) 0 - 150 mg/dL LAB CHEMISTRY METHOD 08/20/2024 5:09 PM [facility] HDL 48 >=40 mg/dL LAB CHEMISTRY METHOD 08/20/2024 5:09 PM [facility] LDL Calculated 72 0 - 100 mg/dL LAB CHEMISTRY METHOD 08/20/2024 5:09 PM [facility] VLDL Cholesterol Max 53.2 mg/dL LAB CHEMISTRY METHOD 08/20/2024 5:09 PM [facility] Non HDL Chol. (LDL+VLDL) 125 <145 mg/dL LAB CHEMISTRY METHOD 08/20/2024 5:09 PM [facility] Chol/HDL Ratio 3.6 0.0 - 4.4 LAB CHEMISTRY METHOD 08/20/2024 5:09 PM [facility] Blood Venous blood specimen / Unknown Venipuncture / Unknown 08/20/2024 11:56 AM EST 08/20/2024 11:56 AM EST C Gigi Sanders MD LAB BLOOD ORDERABLES Final Res ult [facility] [address] [place] [address], [place] [phone] * (ABNORMAL) CBC auto differential (08/20/2024 11:56 AM EST) WBC 13.8(H) 4.8 - 10.8 K/mcL LAB HEMETOLOGY METHOD 08/20/2024 2:43 PM [facility] RBC 5.80(H) 4.50 - 5.50 M/mcL LAB HEMETOLOGY METHOD 08/20/2024 2:43 PM [facility] Hemoglobin 16.9 13.5 - 17.5 g/dL LAB HEMETOLOGY METHOD 08/20/2024 2:43 PM [facility] Hematocrit 52.9 42.0 - 54.0 % LAB HEMETOLOGY METHOD 08/20/2024 2:43 PM [facility] MCV 91.0 79.0 - 98.0 FL LAB HEMETOLOGY METHOD 08/20/2024 2:43 PM [facility] MCH 29.1 27.0 - 32.0 pcg LAB HEMETOLOGY METHOD 08/20/2024 2:43 PM [facility] MCHC 31.9(L) 32.0 - 37.0 g/dL LAB HEMETOLOGY METHOD 08/20/2024 2:43 PM [facility] RDW 12.0 11.0 - 15.0 % LAB HEMETOLOGY METHOD 08/20/2024 2:43 PM [facility] Platelets 259 130 - 400 K/mcL LAB HEMETOLOGY METHOD 08/20/2024 2:43 PM [facility] MPV 11.5(H) 7.0 - 11.0 FL LAB HEMETOLOGY METHOD 08/20/2024 2:43 PM [facility] NRBC 0.0 <1.0 % LAB HEMETOLOGY METHOD 08/20/2024 2:43 PM [facility] NRBC Absolute 0.00 <0.10 K/mcL LAB HEMETOLOGY METHOD 08/20/2024 2:43 PM [facility] Neutrophils Relative 63.9 % LAB HEMETOLOGY METHOD 08/20/2024 2:43 PM [facility] Lymphocytes Relative 27.9 % LAB HEMETOLOGY METHOD 08/20/2024 2:[address] [facility] Monocytes Relative 5.8 % LAB HEMETOLOGY METHOD 08/20/2024 2:43 PM [facility] Eosinophils Relative 1.2 % LAB HEMETOLOGY METHOD 08/20/2024 2:43 PM [facility] Basophils Relative 0.6 % LAB HEMETOLOGY METHOD 08/20/2024 2:43 PM [facility] Immature Granulocytes Relative 0.6 % LAB HEMETOLOGY METHOD 08/20/2024 2:43 PM [facility] Neutrophils Absolute 8.83(H) 1.50 - 7.00 K/mcL LAB HEMETOLOGY METHOD 08/20/2024 2:43 PM [facility] Lymphocytes Absolute 3.85 1.00 - 5.00 K/mcL LAB HEMETOLOGY METHOD 08/20/2024 2:43 PM [facility] Monocytes Absolute 0.80 0.20 - 1.00 K/mcL LAB HEMETOLOGY METHOD 08/20/2024 2:43 PM [facility] Eosinophils Absolute 0.16 0.00 - 0.50 K/mcL LAB HEMETOLOGY METHOD 08/20/2024 2:43 PM [facility] Basophils Absolute 0.08 0.00 - 0.20 K/mcL LAB HEMETOLOGY METHOD 08/20/2024 2:43 PM [facility] Immature Granulocytes Absolute 0.08(H) 0.00 - 0.03 K/mcL LAB HEMETOLOGY METHOD 08/20/2024 2:43 PM [facility] Blood Venous blood specimen / Unknown Venipuncture / Unknown 08/20/2024 11:56 AM EST 08/20/2024 11:56 AM EST us C Gigi Sanders MD LAB BLOOD ORDERABLES Final Res ult [facility] [address] [place] [address], [place] [phone] * (ABNORMAL) Microalbumin creatinine urine ratio (08/20/2024 11:56 AM EST) Creatinine, Urine 130.0 mg/dL LAB CHEMISTRY METHOD 08/20/2024 4:[address] [facility] Microalb, Ur 79.4(H) 0.0 - 29.0 mg/L LAB CHEMISTRY METHOD 08/20/2024 4:[address] [facility] Microalb/Crea t Ratio 61(H) <30 mg/g creat LAB CHEMISTRY METHOD 08/20/2024 4:[address] [facility] Urine Urine specimen obtained by clean catch procedure / Unknown Non-blood Collection / Unknown 08/20/2024 11:56 AM EST 08/20/2024 11:56 AM EST us Rosalva Sanders MD LAB URINE ORDERABLES Final Res ult [facility] [address] [place] [address], [place] [phone] * (ABNORMAL) Hemoglobin A1c (08/20/2024 11:56 AM EST) Hemoglobin A1C 8.0(H) <6.5 % LAB CHEMISTRY METHOD 08/20/2024 8:[address] [facility] Mean Bld Glu Estim. 183 mg/dL LAB CHEMISTRY METHOD 08/20/2024 8:[address] [facility] Blood Venous blood specimen / Unknown Venipuncture / Unknown 08/20/2024 11:56 AM EST 08/20/2024 11:56 AM EST us Rosalva Sanders MD LAB BLOOD ORDERABLES Final Res ult [facility] [address] [place] [address], [place] [phone] * Vitamin B12 (08/20/2024 11:56 AM EST) [facility] Vitamin B-12 341 250 - 900 pcg/mL LAB CHEMISTRY METHOD 08/20/2024 5:09 PM [facility] Blood Venous blood specimen / Unknown Venipuncture / Unknown 08/20/2024 11:56 AM EST 08/20/2024 11:56 AM EST C Gigi Sanders MD LAB BLOOD ORDERABLES Final Res ult [facility] [address] [place] [address], [place] [phone] * (ABNORMAL) Comprehensive metabolic panel (08/20/2024 11:56 AM EST) [facility] Sodium 140 133 - 145 mmol/L LAB CHEMISTRY METHOD 08/20/2024 5:09 PM [facility] Potassium 4.5 3.5 - 5.5 mmol/L LAB CHEMISTRY METHOD 08/20/2024 5:09 PM [facility] Chloride 106 96 - 110 mmol/L LAB CHEMISTRY METHOD 08/20/2024 5:09 PM [facility] CO2 24 21 - 32 mmol/L LAB CHEMISTRY METHOD 08/20/2024 5:09 PM [facility] Anion Gap 10 3 - 11 LAB CHEMISTRY METHOD 08/20/2024 5:09 PM [facility] Glucose 124(H) 70 - 100 mg/dL LAB CHEMISTRY METHOD 08/20/2024 5:09 PM [facility] BUN 20 5 - 25 mg/dL LAB CHEMISTRY METHOD 08/20/2024 5:09 PM [facility] Creatinine 1.19 0.70 - 1.30 mg/dL LAB CHEMISTRY METHOD 08/20/2024 5:09 PM [facility] eGFR 72 >=60 mL/min/1. 73m2 LAB CHEMISTRY METHOD 08/20/2024 5:09 PM [facility] Comment:Calculation based on the??Chronic Kidney Disease Epidemiology Collaboration (CKD-EPI) equation refit??without adjustment for race. BUN/Creatinine Ratio 16.8 LAB CHEMISTRY METHOD 08/20/2024 5:09 PM [facility] Calcium 10.7(H) 8.5 - 10.5 mg/dL LAB CHEMISTRY METHOD 08/20/2024 5:09 PM [facility] AST (SGOT) 25 10 - 42 unit/L LAB CHEMISTRY METHOD 08/20/2024 5:09 PM [facility] ALT (SGPT) 62(H) 10 - 60 unit/L LAB CHEMISTRY METHOD 08/20/2024 5:09 PM [facility] Alkaline Phosphatase 73 42 - 121 unit/L LAB CHEMISTRY METHOD 08/20/2024 5:09 PM [facility] Total Protein 7.7 6.0 - 8.0 g/dL LAB CHEMISTRY METHOD 08/20/2024 5:09 PM [facility] Albumin 4.8 3.2 - 5.0 g/dL LAB CHEMISTRY METHOD 08/20/2024 5:09 PM [facility] Total Bilirubin 0.7 0.0 - 1.4 mg/dL LAB CHEMISTRY METHOD 08/20/2024 5:09 PM [facility] Blood Venous blood specimen / Unknown Venipuncture / Unknown 08/20/2024 11:56 AM EST 08/20/2024 11:56 AM EST C Gigi Sanders MD LAB BLOOD ORDERABLES Final Res ult [facility] [address] [place] [address], * Diabetes Foot Exam (02/16/2024) Diabetes: Annual Foot Exam abstracted Historical Provider HEALTH MAINTENANCE Final Result * Hepatitis C Screening (02/12/2014) Hepatitis C Screening abstracted us Historical Provider HEALTH MAINTENANCE Final Result from Last 3 Months or Most Recently Relevant to Health Maintenance Insurance [facility] [employer] Care Teams Limousine Driver Relationship Specialty Start Date End Date Rosalva Sanders MD [address] [place] [id number] PCP - General Internal Medicine 07/10/13
== END 2024-11-09 13:30 | disposition home or self-care (01) ==
LOC: HO.HAP 13:29
PROVIDERS: Visit Provider Pediatrics
DX: Z13.89 Encounter for screening for other disorder (principal)